=== PATIENT | male | born 1940 ===

== ENCOUNTER 2022-05-06 09:36 | Emergency (ER) | payer MEDICARE ==
[~2022-05-06] VITALS: Ht 182.9 cm; Wt 108.9 kg
[2022-05-06] MEDS ORDERED: Cyclobenzaprine5 MG PO (09:44)
[2022-05-06] MEDS ORDERED: NAPROXEN250 M1 PO (11:13)
[2022-05-06] MEDS ORDERED: CYCL10 PO (11:23)
== END 2022-05-06 11:24 | disposition home or self-care (01) ==
LOC: ER 09:36
DX: S33.5XXA Sprain of ligaments of lumbar spine, initial encounter (principal); I10 Essential (primary) hypertension; E78.5 Hyperlipidemia, unspecified; Z79.899 Other long term (current) drug therapy; Z95.5 Presence of coronary angioplasty implant and graft; Z87.891 Personal history of nicotine dependence; X58.XXXA Exposure to other specified factors, initial encounter
CPT/HCPCS: 72100